=== PATIENT | male | born 1995 | race Caucasian/White ===

== ENCOUNTER 2019-12-20 23:03 | Emergency (ER) | payer BC, SELFPAY ==
[2019-12-20 23:30] VITALS: BP 119/80; PULSE 74; RESP 17; O2SAT 100
[2019-12-20 23:33] VITALS: BP 112/81; PULSE 69; RESP 14; TEMP 37.1; O2SAT 100; BMI 23.5
--- NOTE | 2019-12-20 23:44 | [facility].EDGENADL ---
ED Disposition Clinical Impression: Inguinal hernia bilateral, non-recurrent Qualifiers: Obstruction and gangrene presence: without obstruction or gangrene Recurrence: not specified as recurrent Qualified Code(s): K40.20 - Bilateral inguinal hernia, without obstruction or gangrene, not specified as recurrent Disposition: Home, Self-Care Condition on Discharge: Good Instructions: DI for Groin Hernia Additional Instructions: workman comp form completed Referrals: Lori Gandhi [Primary Care Provider] - Emmett Dominguez MD [Staff Physician] - - Critical Care Critical Care Time: No Attestation: On 12/20/19, the high probability of a clinically significant, sudden or life threatening deterioration of the following system(s) required my full and direct attention, intervention and personal management. The time I documented below is in addition to time spent performing reported procedures but includes the following listed in this critical care notation. Medical Decision Making - Medical Records Medical records reviewed: Yes: I reviewed the patient's medical records. - Isaac Inquiry Pt receiving controlled substance: No Vital Signs: 12/20/19 23:30 12/20/19 23:33 12/21/19 00:00 Temperature 98.7 F Temperature Source Oral Pulse Rate [Right] 74 69 79 Respiratory Rate 17 14 17 Blood Pressure [Right Arm] 119/80 112/81 117/78 Blood Pressure Mean [Right Arm] 93 91 91 Blood Pressure Source [Right Arm] Automatic Cuff Automatic Cuff Automatic Cuff Blood Pressure Position [Right Arm] Supine Sitting Supine 02 Sat by Pulse Oximetry 100 100 99 Oxygen Delivery Method Room Air Room Air Room Air Orders (Tests/Meds): ORDERS Category Date Time Status CT abdomen pelvis wo con Stat Cat Scan 12/21/19 00:10 Taken - CT Data CT Scan: Abdomen, Pelvis Time Received: 01:[address] Reviewed: Yes: I have viewed the radiologist's interpretation Preliminary Findings: Abnormal (see report ) General Adult HPI - General Chief complaint: PAIN Stated complaint: possible hernia pain in groin area Time Seen by Provider: 12/20/19 23:40 Mode of Arrival: Ambulatory Source of Information: Patient, Medical Record Limitations: No Limitations Description of Symptoms (Recalled from ER Triage Doc. by RN): Pt states he felt a pop in his left groin and has been having pain in groing and left scrotum. - History of Present Illness HPI narrative: pulling/lifting at work with lt groin pain Onset (ago): hour(s) Location: pelvis Severity: moderate Quality: sharp Consistency: intermittent Associated symptoms: denies other symptoms Treatments prior to arrival: none - Related Data Home Medications Medication Instructions Recorded Confirmed No Known Home Medications 12/20/19 12/20/19 Allergies Allergy/AdvReac Type Severity Reaction Status Date / Time No Known Allergies Allergy Verified 12/20/19 23:49 [facility] History - Hepatitis A Screen Drug use history?: No High risk sexual behaviors?: No History of sexually transmitted infection?: No Currently employed?: No Childcare worker?: No Do you have indoor plumbing?: Yes Do you have electricity?: Yes Attestation statement:: This patient has been screened for Hepatitis A risk factors. I have reviewed the patient's past medical history: Yes Medical History: Denies:: Diabetes Mellitus Type 1, Diabetes Mellitus Type 2 - Social History Alcohol Intake: never Occupational Status: employed ROS Obtained: Yes All systems reviewed & no additional complaints - Constitutional Constitutional: Denies fever(s) - Eyes Eyes: Denies change in vision - ENT Ears, Nose, Mouth, and Throat: Denies sore throat - Cardiovascular Cardiovascular: Denies chest pain - Respiratory Respiratory: No shortness of breath - Gastrointestinal Gastrointestingal: Denies: abdominal pain - Genitourinary Male Genitourinary: Reports as per HPI, Denies hematuria - Musculoskeletal Mu
[2019-12-21] VITALS: BP 117/78; PULSE 79; RESP 17; O2SAT 99
--- NOTE | 2019-12-21 00:10 | CT_ITS ---
PROCEDURE: CT ABDOMEN PELVIS WO CON CLINICAL INDICATION: left groin pain Left-sided pelvic pain COMPARISON: No exams were available for comparison TECHNIQUE: Axial images obtained with sagittal and coronal reformats. All CT scans at the facility use one or more dose reduction, viz: automated exposure control, ma/kV adjustment per patient size (including targeted exams where dose is matched to indication, i.e. head), or iterative reconstruction technique. FINDINGS: LOWER THORAX: No acute finding ABDOMEN & PELVIS: The liver, spleen, adrenal glands, pancreas, have an unremarkable appearance. No definite ureteral calculi. There is faint hyperdensity noted in the upper pole of the right kidney of questionable clinical significance. No hydronephrosis. No intestinal obstruction or free air. No evidence of appendicitis. Mild amount of retained colonic feces. There are few scattered small mesenteric lymph nodes which are nonspecific. No pelvic mass or abnormal fluid collection of the pelvis. Pelvic phleboliths are present. There are few small inguinal lymph nodes. No acute bony findings. 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 IMPRESSION: 1. No acute abdominal or pelvic findings. 2. Suggestion of constipation. 3. Other nonacute findings as described above Dictated by: Bib Cali MD 12/21/2019 06:27 Bib Cali MD in [place] 12/21/2019 06:27
[2019-12-21 01:46] VITALS: BP 116/62; PULSE 72; RESP 14; TEMP 37.1; O2SAT 99
== END 2019-12-21 01:48 | disposition home or self-care (01) ==
PROVIDERS: Emergency Provider Emergency Medicine; PCP Family Medicine
DX: K40.20 Bilateral inguinal hernia, without obstruction or gangrene, not specified as recurrent (principal)
CPT/HCPCS: 74176; 99282